=== PATIENT | female | born 1965 | race Caucasian/White ===

== ENCOUNTER 2017-03-25 16:53 | Emergency (ER) | payer BC ==
[~2017-03-25] VITALS: Ht 162.6 cm; Wt 68.0 kg
--- NOTE | ~2017-03-25 | CR20 ---
[facility] A Service of [facility] & [facility] RADIOLOGY TEXT RESULTS PATIENT: MONI RICHARDSON LOCATION: CFTX : 67 UNIT #: [id number] AGE: [address]: Cierra López APRN SEX: F ORDER DR: [id number] [facility] [address]. [place], [place] [address] [id number] E MR#: [id number] Acc #: [id number] NAME: MONI RICHARDSON : 1965 SEX: F STUDY DATE/TIME: 03/25/2017 19:54 UNIT: [facility] ROOM: STUDY DESCRIPTION: CR Ankle Min 3 Views Lt Attending Physician: Cierra López A.P.R.N. Ordering Physician: Cierra López A.P.R.N. MEDICAL IMAGING REPORT This report is preliminary unless electronic signature is present EXAM 3 views of the left ankle. DATE 03/25/2017 HISTORY Left ankle pain and swelling today. Fell. COMPARISON None. FINDINGS AP, lateral, and oblique projections of the ankle show satisfactory integrity of the joint mortise with a smooth articular surface. There is no identifiable fracture, dislocation, or radiopaque foreign body. IMPRESSION Normal ankle. Dictated by... Rachel Wade M.D. THIS IS AN ELECTRONICALLY VERIFIED REPORT Rachel Wade M.D. at 03/26/2017 2:03 PM TARA/master TD: 03/26/2017 03:57 JOB #: [id number] MEDICAL IMAGING REPORT Page 1 of 1 COPY
== END 2017-03-25 20:38 | disposition home or self-care (01) ==
LOC: CED 16:53 → CFTX 16:53
DX: S93.402A Sprain of unspecified ligament of left ankle, initial encounter (principal); I10 Essential (primary) hypertension; F41.9 Anxiety disorder, unspecified; F17.200 Nicotine dependence, unspecified, uncomplicated; X50.1XXA Overexertion from prolonged static or awkward postures, initial encounter; Y93.01 Activity, walking, marching and hiking
CPT/HCPCS: 29405; 73610; 99283